=== PATIENT | female | born 1940 | race Caucasian/White ===

== ENCOUNTER 2018-02-04 14:15 | Outpatient (CLI) | payer MEDICARE, BC ==
--- NOTE | 2018-02-04 16:38 | MRI ---
MRI OF THE LUMBAR SPINE WITHOUT AND WITH CONTRAST: 02/04/18 COMPARISON: None. HISTORY: Chronic left hip and back pain. TECHNIQUE: Multiplanar and multisequence MRI images were obtained in the lumbar spine without and with IV contra st. IMPRESSION: Generalized disc desiccation and loss of intervertebral disc space height is seen. There is a well ci rcumscribed focus of high T1 and T2 signal within the L1 vertebral body which likely represents a hem angioma. The vertebral bodies demonstrate normal height and alignment without fracture or subluxation . There is a 4.1 cm cyst in the posterior aspect of the liver. The other prevertebral and paraspinal so ft tissues are unremarkable. The conus medullaris terminates normally at L1. T12-L1: A small disc osteophyte complex is seen. No posterior facet arthrosis. No central canal steno sis. No neural foraminal stenosis. L1-2: A moderate disc osteophyte complex is seen. Mild bilateral posterior facet arthrosis. Mild cent ral canal stenosis. Mild to moderate bilateral neural foraminal stenosis. L2-3: A moderate disc osteophyte complex is seen. Mild bilateral posterior facet arthrosis. Moderate central canal stenosis. Moderate bilateral neural foraminal stenosis. L3-4: A moderate disc osteophyte complex is seen. Moderate bilateral posterior facet arthrosis. Mid t o moderate central canal stenosis. Moderate bilateral neural foraminal stenosis. L4-5: A small generalized concentric disc bulge is seen. Moderate bilateral posterior facet arthrosis . Mild central canal stenosis. Mild bilateral neural foraminal stenosis. L5-S1: A small disc osteophyte complex is seen. Severe bilateral posterior facet arthrosis. Mild cent ral canal stenosis. Severe right and mild to moderate left neural foraminal stenosis. No abnormal enhancement is seen on this examination. IMPRESSION: Degenerative changes of the lumbar spine as above. POS: [facility]
== END 2018-02-04 14:16 | disposition home or self-care (01) ==
LOC: SCSMRI 14:15
PROVIDERS: ATTEND Orthopaedic Surgery
DX: M54.32 Sciatica, left side (principal); K76.89 Other specified diseases of liver; M25.78 Osteophyte, vertebrae; M99.83 Other biomechanical lesions of lumbar region; M48.061 Spinal stenosis, lumbar region without neurogenic claudication; M12.88 Other specific arthropathies, not elsewhere classified, other specified site; M47.896 Other spondylosis, lumbar region
CPT/HCPCS: 72158

== ENCOUNTER 2018-03-02 10:14 | Outpatient (CLI) | payer MEDICARE, BC | END 2018-03-02 10:15 | disposition home or self-care (01) | LOC: BICMAMMO 10:14 | PROVIDERS: ATTEND Family Medicine | DX: Z08 Encounter for follow-up examination after completed treatment for malignant neoplasm (principal); Z85.3 Personal history of malignant neoplasm of breast | CPT/HCPCS: 77066; G0279 ==

== ENCOUNTER 2019-03-03 09:52 | Outpatient (CLI) | payer MEDICARE, BC ==
--- NOTE | 2019-03-03 10:39 | MMO ---
Bilateral MAMMO Bilat Diag DDI+REA. CLINICAL HISTORY: Patient is 79 years old and is seen for diagnostic exam. The patient has no family history of breast cancer. The patient has a history of malignant (generic) in the left breast in 2015. The patient has a history of left Lumpectomy in 2015 - malignant. VIEWS: The views performed were: bilateral craniocaudal with tomosynthesis; bilateral mediolateral oblique with tomosynthesis; and bilateral mediolateral with tomosynthesis. FILMS COMPARED: The present examination has been compared to prior imaging studies performed at [facility] on 01/23/2015, 01/10/2016, 02/05/2017 and 03/02/2018. MAMMOGRAM FINDINGS: There are scattered fibroglandular densities. Right breast: There are no suspicious masses, calcifications or areas of architectural distortion. There are benign appearing calcifications in the right breast. Left breast: Stable post treatment change. There are benign appearing calcifications in the left breast. There are no suspicious masses, suspicious calcifications, or new areas of architectural distortion. IMPRESSION: THERE IS NO MAMMOGRAPHIC EVIDENCE OF MALIGNANCY. A ROUTINE FOLLOW-UP MAMMOGRAM IN 1 YEAR IS RECOMMENDED. THE RESULTS OF THIS EXAM WERE SENT TO THE PATIENT. ACR BI-RADS Category 2 - Benign finding MAMMOGRAPHY NOTE: 1. A negative mammogram report should not delay a biopsy if a dominant of clinically suspicious mass is present. 2. Approximately 10% to 15% of breast cancers are not detected by mammography. 3. Adenosis and dense breasts may obscure an underlying neoplasm. Reported by: DALIA MCFADDEN MD Electonically Signed: [id number]
== END 2019-03-03 09:53 | disposition home or self-care (01) ==
LOC: BICMAMMO 09:52
PROVIDERS: ATTEND Internal Medicine Medical Oncology
DX: Z08 Encounter for follow-up examination after completed treatment for malignant neoplasm (principal); Z85.3 Personal history of malignant neoplasm of breast; Z98.890 Other specified postprocedural states
CPT/HCPCS: 77066; G0279

== ENCOUNTER 2020-03-08 09:43 | Outpatient (CLI) | payer MEDICARE, BC ==
--- NOTE | 2020-03-08 10:22 | MMO ---
Bilateral MAMMO Bilat Diag DDI+REA. CLINICAL HISTORY: Patient is 80 years old and is seen for diagnostic exam. The patient has no family history of breast cancer. The patient has a history of malignant (generic) in the left breast in 2015. The patient has a history of left Lumpectomy in 2015 - malignant. VIEWS: The views performed were: bilateral craniocaudal with tomosynthesis; bilateral mediolateral oblique with tomosynthesis; and bilateral mediolateral with tomosynthesis. FILMS COMPARED: The present examination has been compared to prior imaging studies performed at [facility] on 01/10/2016, 02/05/2017, 03/02/2018 and 03/03/2019. This study has been interpreted with the assistance of computer-aided detection. MAMMOGRAM FINDINGS: There are scattered fibroglandular densities. Benign calcifications are noted bilaterally. There are stable left sided post-operative changes. There are no suspicious masses, suspicious calcifications, or new areas of architectural distortion. IMPRESSION: THERE IS NO MAMMOGRAPHIC EVIDENCE OF MALIGNANCY. A ROUTINE FOLLOW-UP MAMMOGRAM IN 1 YEAR IS RECOMMENDED. THE RESULTS OF THIS EXAM WERE SENT TO THE PATIENT. ACR BI-RADS Category 2 - Benign finding MAMMOGRAPHY NOTE: 1. A negative mammogram report should not delay a biopsy if a dominant of clinically suspicious mass is present. 2. Approximately 10% to 15% of breast cancers are not detected by mammography. 3. Adenosis and dense breasts may obscure an underlying neoplasm. Reported by: EUNICE HERRON MD Electonically Signed: [id number]
== END 2020-03-08 09:44 | disposition home or self-care (01) ==
LOC: BICMAMMO 09:43
PROVIDERS: ATTEND Internal Medicine Medical Oncology
DX: Z08 Encounter for follow-up examination after completed treatment for malignant neoplasm (principal); Z85.3 Personal history of malignant neoplasm of breast
CPT/HCPCS: 77066; G0279

== ENCOUNTER 2020-03-23 08:00 | Outpatient (CLI) | payer MEDICARE, BC ==
--- NOTE | 2020-03-23 10:41 | CT ---
CT OF THE CHEST AND ABDOMEN AND PELVIS WITH IV CONTRAST: INDICATION: An 80-year-old female with a history of breast cancer and weight loss with a lumpectomy in 2015. The patient also has a history of Alzheimer's dementia. COMPARISON: Pelvic ultrasound from [facility] dated December 23, 2011. No Ct comparisons are available of the chest, abdomen, and pelvis. FINDINGS: There is a ground-glass pulmonary nodule within the apical segment of the right upper lobe on image 1 1 of series 3 measuring 11 mm. There is a solid pulmonary nodule measuring 6 mm in the left upper lo be on image 15 of series 3. There is an additional 3 mm pulmonary nodule in the right lower lobe on image 39 of series 3. There is mild scattered emphysema. No pathologically enlarged mediastinal, hilar, or axillary lymphadenopathy is evident. There is mild skin thickening involving the left chest wall which may reflect sequelae of prior radiation therapy. There is a lobulated cyst involving segment 6 of the right hepatic lobe. The pancreas, adrenal gland s, and spleen are normal-appearing. The kidneys are normal-appearing. There are moderate calcificat ions involving the abdominopelvic vasculature. There is a moderate amount of retained stool within t he colon. There is a multilobulated cystic abnormality involving he right adnexal measuring 4 x 4.4 cm. This is enlarged from the pelvic ultrasound dated 12/23/2011. No suspicious osteolytic or osteoblastic lesion is identified. There are scattered degenerative oste oarthritic changes. There is diffuse osteopenia. IMPRESSION: 1. Bilateral pulmonary nodules. Findings may reflect early pulmonary metastatic disease or small in flammatory nodules. Short-term CT followup to document stability or resolution is recommended. 2. Mild chronic obstructive pulmonary disease change. 3. Enlarging lobulated cystic abnormality involving the right adnexa suspicious for a complex cystic mass. Further evaluation with pelvic ultrasound is recommended. Findings may reflect an ovarian cy stadenoma or possible cystadenocarcinoma. 4. Right hepatic lobe cyst. 5. Moderate amount of retained stool within the colon. CODE T POS: [facility]
[2020-03-23] MEDS ORDERED: Iopamidol-370 76% 500 ML 1 ML ONE (11:32)
== END 2020-03-23 08:01 | disposition home or self-care (01) ==
LOC: BICCT 08:00
PROVIDERS: ATTEND Internal Medicine Medical Oncology
DX: C50.812 Malignant neoplasm of overlapping sites of left female breast (principal); R63.4 Abnormal weight loss; R91.8 Other nonspecific abnormal finding of lung field; J44.9 Chronic obstructive pulmonary disease, unspecified; K76.89 Other specified diseases of liver; K59.00 Constipation, unspecified; N83.8 Other noninflammatory disorders of ovary, fallopian tube and broad ligament
CPT/HCPCS: 71260; 74177

== ENCOUNTER 2020-06-12 10:25 | Outpatient (CLI) | payer MEDICARE, BC ==
[~2020-06-12 10:25] MED LIST: Iopamidol-370 76% 500 ML 1 ML ONE
--- NOTE | 2020-06-12 11:52 | CT ---
CT OF CHEST PERFORMED WITH INTRAVENOUS CONTRAST ENHANCEMENT: HISTORY: Breast cancer. Pulmonary nodules noted on previous CT. COMPARISON: A 03/23/2020 exam. FINDINGS: The area of slight ground-glass nodularity seen in the apical segment of the right upper lobe axial i mage 16 is felt to be stable. A left upper lobe nodule axial image 24 appears slightly smaller on th is examination. It measures only in the 3-4 mm range. The third nodule which was seen within the ri ght lower lobe is difficult to even definitively appreciate on today's study. I think the density is just a very vague density seen on axial image 63. No new nodules are identified. No significant me diastinal or hilar adenopathy. No significant axillary lymphadenopathy. The visualized parenchyma h ypodensity is compatible with a cyst. Right and left adrenal glands are normal. The visualized port ions of the kidneys are unremarkable. IMPRESSION: 1. Stable to slightly smaller size with 3 pulmonary nodules noted on the prior exam. 2. No significant mediastinal or hilar adenopathy. 3. No lytic or blastic bony change. POS: [facility]
== END 2020-06-12 10:26 | disposition home or self-care (01) ==
LOC: BICCT 10:25
PROVIDERS: ATTEND Internal Medicine Medical Oncology
DX: C50.812 Malignant neoplasm of overlapping sites of left female breast (principal); R91.8 Other nonspecific abnormal finding of lung field
CPT/HCPCS: 71260; 82565; Q9967

== ENCOUNTER 2020-12-03 10:01 | Outpatient (CLI) | payer MEDICARE, BC ==
[2020-12-03] MEDS ORDERED: Iopamidol 370 76% 100 ML VIAL ONE (14:34)
== END 2020-12-03 10:02 | disposition home or self-care (01) ==
LOC: BICCT 10:01
PROVIDERS: ATTEND Internal Medicine Medical Oncology
DX: C50.812 Malignant neoplasm of overlapping sites of left female breast (principal); R91.8 Other nonspecific abnormal finding of lung field
CPT/HCPCS: 71260; 82565; Q9967

== ENCOUNTER 2021-03-02 09:38 | Emergency (ER) | payer MEDICARE, BC ==
[2021-03-02] MEDS ORDERED: Iopamidol-370 76% 500 ML 1 ML ONE (10:20)
[2021-03-02 10:27] LABS: #Eosinphils 0.1 thou/uL (0.0-0.7); #Lymphocytes 1.9 thou/uL (1.20-3.40); #Monocytes 0.4 thou/uL (0.11-0.59); #Neutrophils 5.4 thou/uL (1.40-6.50); %Basophils 0.1 % (0.0-1.0); %Lymphocytes 24.5 % (21.0-51.0); %Monocytes 5.1 % (0.0-10.0); %Neutrophils 69.3 % (42.0-75.0); Hemoglobin 13.7 g/dL (12.0-16.0); Mean Corpuscular HGB CONC 35.3 g/dL (32.0-36.0); Mean Corpuscular Hemoglobin 32.9 pg (27.0-31.0); Mean Corpuscular Volume 93.2 fL (78.0-98.0); Mean Platelet Volume 7.3 fL (7.4-10.4); Platelet Count 148 thou/uL (130-400); RBC Distribution Width 11.4 % (11.5-14.5); Red Blood Cell (RBC) Count 4.15 mill/uL (4.20-5.40); White Blood Cell (WBC) Count 7.8 thou/uL (4.8-10.8)
[2021-03-02 10:57] LABS: ALT (SGPT) 21 U/L (8-55); AST (SGOT) 38 U/L (5-34); Albumin 3.8 g/dL (3.4-4.8); Alkaline Phosphatase 42 U/L (40-110); Anion Gap 14 mmol/L (10-20); BUN (Urea Nitrogen) 18 mg/dL (9.8-20.1); Bilirubin, Total 0.4 mg/dL (0.2-1.2); Calc. Creatinine Clearance 0 mL/min (70-130); Calcium 9.2 mg/dL (7.8-10.44); Carbon Dioxide 24 mmol/L (23-31); Chloride 100 mmol/L (98-107); Globulin 3.6 g/dL (2.4-3.5); Glucose 93 mg/dL (83-110); Lipase 39 U/L (8-78); Potassium 4.8 mmol/L (3.5-5.1); Protein, Total 7.4 g/dL (5.8-8.1); Sodium 133 mmol/L (136-145)
[2021-03-02 11:56] LABS: Bilirubin Negative (Negative); Blood, Urine Negative (Negative); Clarity Clear (Clear); Glucose, Urine (Dipstick) Normal (Negative); Ketone, Urine 10 mg/dL (Negative); Leukocyte Negative Leu/uL (Negative); Nitrite Negative (Negative); Protein, Urine (Dipstick) Negative (Neg-Trace); Specific Gravity, Urine 1.011 (1.002-1.036); Urobilinogen Normal mg/dL (Less than 2)
== END 2021-03-02 14:30 | disposition home or self-care (01) ==
LOC: ERS 09:38
DX: R53.1 Weakness (principal); R63.0 Anorexia; I10 Essential (primary) hypertension; Z79.899 Other long term (current) drug therapy
CPT/HCPCS: 36415; 70450; 71045; 74177; 80053; 81003; 83690; 84443; 84484; 85025; 87040; 87086; 93005; Q9967

== ENCOUNTER 2021-06-03 09:02 | Outpatient (CLI) | payer MEDICARE, BC ==
[2021-06-03] MEDS ORDERED: Iopamidol 370 76% 100 ML VIAL ONE (10:38)
== END 2021-06-03 09:03 | disposition home or self-care (01) ==
LOC: BICCT 09:02
PROVIDERS: ATTEND Internal Medicine Medical Oncology
DX: C50.919 Malignant neoplasm of unspecified site of unspecified female breast (principal); C56.9 Malignant neoplasm of unspecified ovary; R91.8 Other nonspecific abnormal finding of lung field; K76.89 Other specified diseases of liver; K57.30 Diverticulosis of large intestine without perforation or abscess without bleeding; J98.4 Other disorders of lung; N83.8 Other noninflammatory disorders of ovary, fallopian tube and broad ligament
CPT/HCPCS: 71260; 74177; 82565; Q9967